=== PATIENT | female | born 1945 | race Caucasian/White ===

== ENCOUNTER 2018-04-16 11:31 | Outpatient (CLI) | payer MEDICARE | END 2018-04-16 11:32 | disposition home or self-care (01) | LOC: BICMAMMO 11:31 | PROVIDERS: ATTEND Family Medicine | DX: Z12.31 Encounter for screening mammogram for malignant neoplasm of breast (principal); Z80.3 Family history of malignant neoplasm of breast | CPT/HCPCS: 77063; 77067 ==

== ENCOUNTER 2018-08-21 12:46 | Outpatient (CLI) | payer MEDICARE ==
--- NOTE | 2018-08-21 15:13 | RAD ---
FOUR VIEW LUMBAR SPINE SERIES: CLINICAL HISTORY: Pain. FINDINGS: There is a mild anterior wedge compression fracture of L1. There is left convexity scoliosis of the lumbar spine epicenter at L2. There is multilevel moderate degenerative change. Vascular calcificat ion is present. There are calcifications overlying the pelvis not further characterized on this exam . IMPRESSION: 1. Mild L1 anterior wedge compression fracture. This is age-indeterminate on the basis of this exam . Correlate clinically. 2. Moderate degenerative change and left convexity scoliosis of the lumbar spine. POS: YESY
--- NOTE | 2018-08-21 15:19 | RAD ---
LEFT HIP 2 VIEWS: HISTORY: Left hip pain. FINDINGS: There are degenerative changes in the left hip manifested by osteophyte formation and joint space linda rowing. No acute fracture or dislocation or bone destruction is seen. IMPRESSION: Left hip osteoarthritis. POS: YESY
== END 2018-08-21 12:47 | disposition home or self-care (01) ==
LOC: BICRAD 12:46
PROVIDERS: ATTEND Family Medicine
DX: M54.5 Low back pain (principal); M25.552 Pain in left hip; M16.12 Unilateral primary osteoarthritis, left hip; S32.010A Wedge compression fracture of first lumbar vertebra, initial encounter for closed fracture; M47.896 Other spondylosis, lumbar region; M41.9 Scoliosis, unspecified
CPT/HCPCS: 72110

== ENCOUNTER 2018-09-24 12:04 | Outpatient (CLI) | payer MEDICARE ==
--- NOTE | 2018-09-24 14:34 | MRI ---
MRI LUMBAR SPINE WIHTOUT CONTRAST: HISTORY: Spinal stenosis. Low back pain. COMPARISON: Lumbar spine radiograph 08/21/2018. FINDINGS: The aortic contour is nonaneurysmal. No retroperitoneal adenopathy. There is moderate levoscoliosis . No hydronephrosis. T2 hyperintense focus posterior cortex interpolar right kidney measures approxima tely 6 mm, too small to characterize. No marrow infiltrative process. The conus medullaris terminates near the inferior end plate of L1. There is an old compression fracture at L1 with approximately 20% anterior height loss. No significa nt retropulsion. Levels are as follows: L1-2: There is severe degenerative disk space height loss. There is a circumferential disk bulge. This causes narrowing of the central CSF space with the spinal canal measuring 9 mm. There is mild l eft and moderate right-sided neural foraminal narrowing. Hypertrophic osteophyte formation to the fa cets is present. L2-3: There is a moderate circumferential disk bulge. Superimposed central annular fissure. Severe hypertrophic facet changes. There is mild left and moderate right-sided neural foraminal narrowing. The spinal canal measures approximately 6 mm. L3-4: Circumferential disk bulge. Moderate facet arthropathy. Disk bulge is worsened in the left s ubforaminal and extraforaminal zone. There is mild increased dorsal epidural fat. The spinal canal measures approximately 6 mm. Moderate left-sided and mild right-sided neural foraminal narrowing. L4-5: There is a low-grade broad-based posterior disk bulge, worse in the bilateral subforaminal zon es with osteophyte formation. Moderate facet arthropathy. Mild bilateral neural foraminal narrowing . L5-S1: Moderate posterior degenerative disk space height loss with a broad-based asymmetric central, left paracentral, and subforaminal and extraforaminal disk bulge. There is moderate left-sided and mild right-sided neural foraminal narrowing. IMPRESSION: 1. Moderate levoscoliosis of the lumbar spine with degenerative changes as described. 2. Old compression at L1 with approximately 20% anterior height loss. POS: [facility]
== END 2018-09-24 12:05 | disposition home or self-care (01) ==
LOC: SCSMRI 12:04
PROVIDERS: ATTEND Orthopaedic Surgery
DX: M48.061 Spinal stenosis, lumbar region without neurogenic claudication (principal); M41.9 Scoliosis, unspecified; M47.816 Spondylosis without myelopathy or radiculopathy, lumbar region
CPT/HCPCS: 72148

== ENCOUNTER 2020-06-22 13:45 | Outpatient (CLI) | payer MEDICARE ==
--- NOTE | 2020-06-22 16:19 | MMO ---
Bilateral MAMMO Bilat Screen [facility]. CLINICAL HISTORY: Patient is 74 years old and is seen for screening. The patient has the following family history of breast cancer: daughter, at age 46, malignant (generic). The patient has no personal history of cancer. VIEWS: The views performed were: bilateral craniocaudal with tomosynthesis and bilateral mediolateral oblique with tomosynthesis. FILMS COMPARED: The present examination [facility] and [facility]/13/2016, and at [facility] on 04/16/2018. This study has been interpreted with the assistance of computer-aided detection. MAMMOGRAM FINDINGS: The breasts are heterogeneously dense, which could obscure a lesion on mammography. There are stable calcifications seen in both breasts. There are no suspicious masses, suspicious calcifications, or new areas of architectural distortion. IMPRESSION: THERE IS NO MAMMOGRAPHIC EVIDENCE OF MALIGNANCY. A ROUTINE FOLLOW-UP MAMMOGRAM IN 1 YEAR IS RECOMMENDED. THE RESULTS OF THIS EXAM WERE SENT TO THE PATIENT. ACR BI-RADS Category 2 - Benign finding MAMMOGRAPHY NOTE: 1. A negative mammogram report should not delay a biopsy if a dominant of clinically suspicious mass is present. 2. Approximately 10% to 15% of breast cancers are not detected by mammography. 3. Adenosis and dense breasts may obscure an underlying neoplasm. Reported by: MONICA ROCHA MD Electonically Signed: [id number]
== END 2020-06-22 13:46 | disposition home or self-care (01) ==
LOC: BICMAMMO 13:45
PROVIDERS: ATTEND Family Medicine
DX: Z12.31 Encounter for screening mammogram for malignant neoplasm of breast (principal); Z80.3 Family history of malignant neoplasm of breast
CPT/HCPCS: 77063; 77067

== ENCOUNTER 2021-01-17 19:58 | Inpatient (IN) | payer MEDICARE ==
[2021-01-17 20:59] LABS: #Eosinphils 0.1 thou/uL (0.0-0.7); #Lymphocytes 1.8 thou/uL (1.20-3.40); #Monocytes 0.5 thou/uL (0.11-0.59); %Basophils 0.5 % (0.0-1.0); %Lymphocytes 24.3 % (21.0-51.0); %Monocytes 7.2 % (0.0-10.0); %Neutrophils 66.9 % (42.0-75.0); Hemoglobin 12.8 g/dL (12.0-16.0); Mean Corpuscular HGB CONC 33.3 g/dL (32.0-36.0); Mean Corpuscular Hemoglobin 31.8 pg (27.0-31.0); Mean Corpuscular Volume 95.3 fL (78.0-98.0); Mean Platelet Volume 7.3 fL (7.4-10.4); Platelet Count 237 thou/uL (130-400); Red Blood Cell (RBC) Count 4.03 mill/uL (4.20-5.40); White Blood Cell (WBC) Count 7.5 thou/uL (4.8-10.8)
[2021-01-17 21:19] LABS: ALT (SGPT) 11 U/L (8-55); AST (SGOT) 11 U/L (5-34); Albumin 4.2 g/dL (3.4-4.8); Alkaline Phosphatase 103 U/L (40-110); Anion Gap 17 mmol/L (10-20); BUN (Urea Nitrogen) 90 mg/dL (9.8-20.1); Bilirubin, Total 0.4 mg/dL (0.2-1.2); CK (CPK) 64 U/L (29-168); Calc. Creatinine Clearance 0 mL/min (70-130); Calcium 9.2 mg/dL (7.8-10.44); Carbon Dioxide 16 mmol/L (23-31); Chloride 110 mmol/L (98-107); Globulin 3.2 g/dL (2.4-3.5); Glucose 101 mg/dL (83-110); Magnesium 1.8 mg/dL (1.6-2.6); Potassium 3.8 mmol/L (3.5-5.1); Protein, Total 7.4 g/dL (5.8-8.1); Sodium 139 mmol/L (136-145)
[2021-01-17 23:04] LABS: Bilirubin Negative (Negative); Blood, Urine Negative (Negative); Clarity Clear (Clear); Glucose, Urine (Dipstick) Normal (Negative); Ketone, Urine Negative (Negative); Leukocyte Negative Leu/uL (Negative); Nitrite Negative (Negative); Protein, Urine (Dipstick) 10 mg/dL (Neg-Trace); Specific Gravity, Urine 1.013 (1.002-1.036); Urobilinogen Normal mg/dL (Less than 2)
[2021-01-17 23:20] VITALS: BMI 30.4
[2021-01-17] MEDS: Sodium Chloride 0.9% 1,000 ML IV SCH ×3 (23:32→23:54)
[2021-01-18] MEDS: Sodium Chloride 0.9% 1,000 ML IV SCH (05:51)
[2021-01-18 06:36] LABS: #Eosinphils 0.1 thou/uL (0.0-0.7); #Lymphocytes 1.7 thou/uL (1.20-3.40); #Monocytes 0.6 thou/uL (0.11-0.59); #Neutrophils 4.8 thou/uL (1.40-6.50); %Basophils 0.1 % (0.0-1.0); %Eosinophils 1.1 % (0.0-10.0); %Lymphocytes 23.1 % (21.0-51.0); %Monocytes 8.2 % (0.0-10.0); %Neutrophils 67.4 % (42.0-75.0); Hemoglobin 10.9 g/dL (12.0-16.0); Mean Corpuscular HGB CONC 33.3 g/dL (32.0-36.0); Mean Corpuscular Hemoglobin 31.7 pg (27.0-31.0); Mean Corpuscular Volume 95.2 fL (78.0-98.0); Mean Platelet Volume 7.5 fL (7.4-10.4); Platelet Count 193 thou/uL (130-400); RBC Distribution Width 12.9 % (11.5-14.5); Red Blood Cell (RBC) Count 3.44 mill/uL (4.20-5.40); White Blood Cell (WBC) Count 7.2 thou/uL (4.8-10.8)
[2021-01-18 06:56] LABS: Anion Gap 14 mmol/L (10-20); BUN (Urea Nitrogen) 78 mg/dL (9.8-20.1); Calc. Creatinine Clearance 22 mL/min (70-130); Calcium 8.7 mg/dL (7.8-10.44); Carbon Dioxide 15 mmol/L (23-31); Chloride 115 mmol/L (98-107); Glucose 98 mg/dL (83-110); Potassium 3.8 mmol/L (3.5-5.1); Sodium 140 mmol/L (136-145)
[2021-01-18] MEDS: Heparin 5,000 UNITS/ML VIAL SC SCH ×3 (08:54→20:36)
[2021-01-18] MEDS: Sodium Bicarbonate 150 MEQ in Dextrose 5% in Water 1,000 ML IV SCH ×2 (08:55→20:36)
[2021-01-18] MEDS ORDERED: Non-Formulary Item 1 EACH (Fluoxetine Hcl [Fluoxetine Hcl] 40 MG Capsule) PO SCH (09:00)
[2021-01-18] MEDS ORDERED: Non-Formulary Item 1 EACH (Levothyroxine Sodium [Levothyroxine] 125 MCG Capsule) PO SCH (09:00)
[2021-01-18] MEDS: FLUoxetine HCl 20 MG CAP PO SCH (09:04)
[2021-01-18] MEDS: Atorvastatin Calcium 40 MG TAB PO SCH (09:05)
[2021-01-18 14:45] LABS: Creatinine, Urine 69.04 mg/dL (47-110); Protein, Urine Random Quant Less than 10 mg/dL (1-14); Sodium, Urine 79 mmol/L (Not Available); Urea Nitrogen, Random Urine 744 mg/dl
[2021-01-19] MEDS: Levothyroxine Sodium 125 MCG TAB PO SCH (05:41)
[2021-01-19] MEDS: Sodium Bicarbonate 150 MEQ in Dextrose 5% in Water 1,000 ML IV SCH (05:42)
[2021-01-19 06:36] LABS: Hemoglobin 10.7 g/dL (12.0-16.0); Mean Corpuscular HGB CONC 34.7 g/dL (32.0-36.0); Mean Corpuscular Volume 92.3 fL (78.0-98.0); Mean Platelet Volume 7.3 fL (7.4-10.4); Platelet Count 188 thou/uL (130-400); RBC Distribution Width 12.7 % (11.5-14.5); Red Blood Cell (RBC) Count 3.33 mill/uL (4.20-5.40); White Blood Cell (WBC) Count 5.9 thou/uL (4.8-10.8)
[2021-01-19 07:06] LABS: Albumin 3.4 g/dL (3.4-4.8); Anion Gap 14 mmol/L (10-20); BUN (Urea Nitrogen) 45 mg/dL (9.8-20.1); BUN/Creatinine Ratio 33.58; Calc. Creatinine Clearance 51 mL/min (70-130); Calcium 8.1 mg/dL (7.8-10.44); Carbon Dioxide 23 mmol/L (23-31); Chloride 107 mmol/L (98-107); Glucose 110 mg/dL (83-110); Iron 109 ug/dL (50-170); Iron Binding Capacity, Total 224 mcg/dL (265-497); Magnesium 1.5 mg/dL (1.6-2.6); Sodium 141 mmol/L (136-145)
[2021-01-19] MEDS ORDERED: Magnesium Sulfate 4 GM in Sodium Chloride 0.9% 250 ML 250 ML IVPB SCH (08:30)
[2021-01-19] MEDS: Potassium Chloride 20 MEQ TAB PO SCH ×2 (09:47→21:26)
[2021-01-19] MEDS: Heparin 5,000 UNITS/ML VIAL SC SCH ×3 (09:48→21:26)
[2021-01-19] MEDS: FLUoxetine HCl 20 MG CAP PO SCH (09:48)
[2021-01-19] MEDS: Atorvastatin Calcium 40 MG TAB PO SCH (09:48)
[2021-01-19] MEDS ORDERED: Acetaminophen 325 MG TAB PO PRN (15:24)
[2021-01-20] MEDS: Levothyroxine Sodium 125 MCG TAB PO SCH (05:30)
[2021-01-20 06:35] LABS: Anion Gap 11 mmol/L (10-20); BUN (Urea Nitrogen) 31 mg/dL (9.8-20.1); Calc. Creatinine Clearance 59 mL/min (70-130); Calcium 8.6 mg/dL (7.8-10.44); Carbon Dioxide 30 mmol/L (23-31); Chloride 107 mmol/L (98-107); Glucose 97 mg/dL (83-110); Magnesium 2.2 mg/dL (1.6-2.6); Potassium 3.9 mmol/L (3.5-5.1); Sodium 144 mmol/L (136-145)
[2021-01-20] MEDS: Potassium Chloride 20 MEQ TAB PO SCH (08:53)
[2021-01-20] MEDS: Atorvastatin Calcium 40 MG TAB PO SCH (08:54)
[2021-01-20] MEDS: FLUoxetine HCl 20 MG CAP PO SCH (08:54)
[2021-01-20] MEDS: Heparin 5,000 UNITS/ML VIAL SC SCH (08:55)
[2021-01-20 12:28] VITALS: BP 105/71; TEMP 98.3
== END 2021-01-20 11:55 | disposition home or self-care (01) | DRG 683 ==
LOC: ERS 19:58 → T4-A 22:12
PROVIDERS: ADMIT Student in an Organized Health Care Education/Training Program; ATTEND Internal Medicine
DX: N17.9 Acute kidney failure, unspecified (principal); E87.2 Acidosis; A08.4 Viral intestinal infection, unspecified; I10 Essential (primary) hypertension; E78.5 Hyperlipidemia, unspecified; E78.00 Pure hypercholesterolemia, unspecified; E89.0 Postprocedural hypothyroidism; E86.9 Volume depletion, unspecified; I95.2 Hypotension due to drugs; T46.5X5A Adverse effect of other antihypertensive drugs, initial encounter; E87.6 Hypokalemia; E83.42 Hypomagnesemia; Z83.3 Family history of diabetes mellitus; Z79.899 Other long term (current) drug therapy; Z79.890 Hormone replacement therapy
CPT/HCPCS: 36415; 80048; 80053; 80069; 81003; 82150; 82550; 82570; 82728; 83540; 83550; 83690; 83735; 84156; 84300; 84540; 85025; 85027; 87635; 93005; J1644; J3475; J7050; J7070; U0003; U0005

== ENCOUNTER 2021-08-08 13:56 | Outpatient (CLI) | payer MEDICARE | END 2021-08-08 13:57 | disposition home or self-care (01) | LOC: BICMAMMO 13:56 | PROVIDERS: ATTEND Family Medicine | DX: Z12.31 Encounter for screening mammogram for malignant neoplasm of breast (principal); Z80.3 Family history of malignant neoplasm of breast | CPT/HCPCS: 77063; 77067 ==

== ENCOUNTER 2021-11-22 10:09 | Outpatient (CLI) | payer MEDICARE ==
[2021-11-22 11:22] LABS: #Eosinphils 0.1 10x3/uL (0.0-0.5); #Monocytes 0.5 10x3/uL (0.0-1.1); #Neutrophils 4.7 10x3/uL (1.5-8.4); %Basophils 0.3 % (0.0-2.0); %Eosinophils 1.8 % (0.0-6.0); %Lymphocytes 25.7 % (18.0-47.0); %Monocytes 7.1 % (0.0-10.0); %Neutrophils 64.7 % (40.0-75.0); Hemoglobin 12.5 g/dL (12.0-15.5); Mean Corpuscular HGB CONC 32.5 g/dL (32.0-36.0); Mean Corpuscular Hemoglobin 31.3 pg (27.0-33.0); Mean Corpuscular Volume 96.5 fl (81.6-98.3); Mean Platelet Volume 9.8 fl (7.4-10.4); Platelet Count 238 10x3/uL (150-450); RBC Distribution Width 13.7 % (11.5-14.5); Red Blood Cell (RBC) Count 3.99 10x6/uL (3.90-5.03); White Blood Cell (WBC) Count 7.2 10x3/uL (3.5-10.5)
[2021-11-22 11:42] LABS: Anion Gap 14 mmol/L (10-20); BUN (Urea Nitrogen) 25 mg/dL (9.8-20.1); Calc. Creatinine Clearance 0 mL/min (70-130); Calcium 9.6 mg/dL (7.8-10.44); Carbon Dioxide 31 mmol/L (23-31); Chloride 99 mmol/L (98-107); Glucose 108 mg/dL (83-110); Potassium 4.2 mmol/L (3.5-5.1); Prothrombin Time 10.8 sec (9.5-12.1); Sodium 140 mmol/L (136-145)
[2021-11-22 11:44] LABS: Bilirubin Neg (Negative); Blood, Urine Negative (Negative); Clarity Clear (Clear); Glucose, Urine (Dipstick) Normal (Negative); Ketone, Urine Negative (Negative); Leukocyte 25 (Negative); Nitrite Negative (Negative); Protein, Urine (Dipstick) 15 mg/dl (Neg-Trace); Specific Gravity, Urine 1.015 (1.002-1.036); Urobilinogen Normal mg/dL (Less than 2)
[2021-11-22 12:09] LABS: Bacteria/HPF None Seen HPF (None Seen); RBC/HPF 0-3 HPF (0-3); Squamous Epithelial 0-3 HPF (0-3); WBC/HPF 0-3 HPF (0-3)
[2021-11-22 20:45] LABS: SARS-CoV-2 PCR by NAA Not Detected (NotDetected)
== END 2021-11-22 10:10 | disposition home or self-care (01) ==
LOC: LABBT 10:09
PROVIDERS: ATTEND Orthopaedic Surgery
DX: Z01.818 Encounter for other preprocedural examination (principal); M16.12 Unilateral primary osteoarthritis, left hip; Z20.822 Contact with and (suspected) exposure to COVID-19
CPT/HCPCS: 80048; 85025; 85610; 87081; 93005; U0003; U0005; 81003; 81015; 93010

== ENCOUNTER 2021-11-27 05:44 | Inpatient (IN) | payer MEDICARE ==
[2021-11-27] MEDS ORDERED: ceFAZolin 2 GM/DEX 5% 100 ML BAG ONE (06:08)
[2021-11-27] MEDS ORDERED: Sodium Chloride 0.9% 100 ML ONE (06:08)
[2021-11-27] MEDS ORDERED: Tranexamic Acid 1,000 MG/10 ML VIAL ONE (06:08)
[2021-11-27] MEDS ORDERED: Vancomycin 1.5 GRAM/300 ML BAG 1.5 GM in Premix Bag 1 BAG IVPB SCH (06:15)
[2021-11-27] MEDS ORDERED: Bupivacaine PF 0.5% 30 ML VIAL ONE (06:22)
[2021-11-27] MEDS ORDERED: Midazolam HCl 2 mg/2 ml Vial ONE ×2 (06:46→07:44)
[2021-11-27] MEDS ORDERED: Fentanyl 100 MCG/2 ML VIAL ONE ×2 (06:46→09:16)
[2021-11-27] MEDS ORDERED: Lidocaine 1% (PF) 30 ML VIAL ONE (06:47)
[2021-11-27] MEDS ORDERED: Zolpidem Tartrate 5 MG TAB PO PRN (06:55)
[2021-11-27] MEDS ORDERED: diphenhydrAMINE 25 MG CAP PO PRN (06:55)
[2021-11-27] MEDS ORDERED: traMADol HCl 50 MG TAB PO PRN (06:55)
[2021-11-27] MEDS ORDERED: Ondansetron PF 4 MG/2 ML Vial IVP PRN (06:55)
[2021-11-27] MEDS ORDERED: Promethazine HCl 25 MG/ML VIAL IM PRN ×2 (06:55→09:02)
[2021-11-27] MEDS ORDERED: Bupivacaine HCl 0.5%/Epinephrine 1:200,000/PF 30 ml Vial ONE (07:24)
[2021-11-27] MEDS ORDERED: Ondansetron PF 4 MG/2 ML Vial ONE (07:24)
[2021-11-27] MEDS ORDERED: Dexamethasone 20 MG/5 ML VIAL ONE (07:24)
[2021-11-27] MEDS ORDERED: Phenylephrine 10 MG/ML VIAL ONE (07:24)
[2021-11-27] MEDS ORDERED: Scopolamine 1.5 mg/72 hour Patch ONE (08:04)
[2021-11-27] MEDS ORDERED: Ondansetron HCl/PF 4 MG/2 ML Vial IVP PRN (09:02)
[2021-11-27] MEDS ORDERED: Promethazine HCl 25 MG/ML VIAL IVPB PRN (09:02)
[2021-11-27] MEDS: Aspirin 81 mg Enteric Coated Tablet PO SCH ×2 (09:32→20:51)
[2021-11-27] MEDS: Allopurinol 100 MG TAB PO SCH (09:32)
[2021-11-27] MEDS: Sodium Chloride 0.9% 1,000 ML IV SCH ×2 (10:02→17:53)
[2021-11-27] MEDS: Cholecalciferol 1,000 UNITS (25 MCG) TAB PO SCH (11:32)
[2021-11-27] MEDS: FLUoxetine HCl 20 MG CAP PO SCH (11:33)
[2021-11-27] MEDS: Lisinopril/Hydrochlorothiazide 20/25 mg Tablet PO SCH (11:34)
[2021-11-27] MEDS: Fentanyl 100 MCG/2 ML VIAL SLOW IVP PRN ×2 (12:02→21:05)
[2021-11-27] MEDS ORDERED: Ketorolac Tromethamine 30 MG/ML VIAL IM SCH (14:00)
[2021-11-27] MEDS: traMADol HCl 50 MG TAB PO PRN (15:43)
[2021-11-27] MEDS: Atorvastatin Calcium 40 MG TAB PO SCH (20:51)
[2021-11-28 02:13] VITALS: BMI 31.9
[2021-11-28] MEDS: traMADol HCl 50 MG TAB PO PRN (05:37)
[2021-11-28] MEDS: Levothyroxine Sodium 125 MCG TAB PO SCH (05:37)
[2021-11-28] MEDS: Sodium Chloride 0.9% 1,000 ML IV SCH ×3 (06:29→20:39)
[2021-11-28 06:44] LABS: Hemoglobin 10.6 g/dL (12.0-16.0); Mean Corpuscular HGB CONC 33.9 g/dL (32.0-36.0); Mean Corpuscular Hemoglobin 33.4 pg (27.0-31.0); Mean Corpuscular Volume 98.3 fL (78.0-98.0); Mean Platelet Volume 7.1 fL (7.4-10.4); Platelet Count 192 thou/uL (130-400); RBC Distribution Width 12.7 % (11.5-14.5); Red Blood Cell (RBC) Count 3.17 mill/uL (4.20-5.40); White Blood Cell (WBC) Count 10.8 thou/uL (4.8-10.8)
[2021-11-28] MEDS: Fentanyl 100 MCG/2 ML VIAL SLOW IVP PRN (09:00)
[2021-11-28] MEDS: Ferrous Gluconate 324 MG TAB PO SCH ×2 (09:13→20:34)
[2021-11-28] MEDS: FLUoxetine HCl 20 MG CAP PO SCH (09:14)
[2021-11-28] MEDS: Senokot S 8.6-50 MG TAB PO SCH ×2 (09:14→20:34)
[2021-11-28] MEDS: Lisinopril/Hydrochlorothiazide 20/25 mg Tablet PO SCH (09:14)
[2021-11-28] MEDS: Aspirin 81 mg Enteric Coated Tablet PO SCH ×2 (09:14→20:33)
[2021-11-28] MEDS: Multivitamin W/ Minerals 1 TAB PO SCH (09:14)
[2021-11-28] MEDS: Cholecalciferol 1,000 UNITS (25 MCG) TAB PO SCH (09:15)
[2021-11-28] MEDS: Allopurinol 100 MG TAB PO SCH (09:15)
[2021-11-28] MEDS: Atorvastatin Calcium 40 MG TAB PO SCH (20:33)
[2021-11-28] MEDS: Acetaminophen 325 MG TAB PO PRN (22:43)
[2021-11-29] MEDS: Acetaminophen 325 MG TAB PO PRN (05:34)
[2021-11-29] MEDS: Levothyroxine Sodium 125 MCG TAB PO SCH (05:34)
[2021-11-29] MEDS: Cholecalciferol 1,000 UNITS (25 MCG) TAB PO SCH (08:34)
[2021-11-29] MEDS: Lisinopril/Hydrochlorothiazide 20/25 mg Tablet PO SCH (08:34)
[2021-11-29] MEDS: Ferrous Gluconate 324 MG TAB PO SCH (08:35)
[2021-11-29] MEDS: Senokot S 8.6-50 MG TAB PO SCH (08:35)
[2021-11-29] MEDS: Allopurinol 100 MG TAB PO SCH (08:35)
[2021-11-29] MEDS: Multivitamin W/ Minerals 1 TAB PO SCH (08:35)
[2021-11-29] MEDS: Aspirin 81 mg Enteric Coated Tablet PO SCH (08:35)
[2021-11-29] MEDS: FLUoxetine HCl 20 MG CAP PO SCH (08:35)
[2021-11-29 11:25] VITALS: TEMP 98.6
[2021-11-29 12:34] VITALS: BP 88/56
[2021-12-01] MEDS ORDERED: FLU VACC QS2021-22(65YR UP)/PF 240 MCG/0.7 ML SYRINGE IM ONE (09:00)
== END 2021-11-29 15:47 | disposition home or self-care (01) | DRG 470 ==
LOC: SDC 05:44 → SURG A 06:56
PROVIDERS: ADMIT Orthopaedic Surgery; ATTEND Orthopaedic Surgery
PROC: 0SRB039 Replacement of Left Hip Joint with Ceramic Synthetic Substitute, Cemented, Open Approach (ICD-10-PCS; principal; 2021-11-27)
DX: M16.12 Unilateral primary osteoarthritis, left hip (principal); I10 Essential (primary) hypertension; E78.5 Hyperlipidemia, unspecified; E89.0 Postprocedural hypothyroidism; M10.9 Gout, unspecified; F41.9 Anxiety disorder, unspecified; H40.9 Unspecified glaucoma; Z79.899 Other long term (current) drug therapy; Z79.890 Hormone replacement therapy
CPT/HCPCS: 36415; 85027; C1776; J1100; J2001; J2250; J2370; J2405; J3010; J3370; J3490; J7050; S0020

== ENCOUNTER 2022-05-24 13:08 | Outpatient (CLI) | payer MEDICARE | END 2022-05-24 13:09 | disposition home or self-care (01) | LOC: ULT 13:08 | PROVIDERS: ATTEND Family Medicine | DX: I26.99 Other pulmonary embolism without acute cor pulmonale (principal); Z96.649 Presence of unspecified artificial hip joint | CPT/HCPCS: 93970 ==

== ENCOUNTER 2022-11-21 14:12 | Outpatient (CLI) | payer MEDICARE | END 2022-11-21 14:13 | disposition home or self-care (01) | LOC: BICMAMMO 14:12 | PROVIDERS: ATTEND Family Medicine | DX: Z12.31 Encounter for screening mammogram for malignant neoplasm of breast (principal); Z80.3 Family history of malignant neoplasm of breast | CPT/HCPCS: 77063; 77067 ==

== ENCOUNTER 2024-08-13 09:07 | Outpatient (CLI) | payer MEDICARE | END 2024-08-13 09:08 | disposition home or self-care (01) | LOC: BICULT 09:07 | PROVIDERS: ATTEND Family Medicine | DX: R10.11 Right upper quadrant pain (principal); R93.2 Abnormal findings on diagnostic imaging of liver and biliary tract | CPT/HCPCS: 76705 ==

== ENCOUNTER 2024-09-20 09:46 | Outpatient (CLI) | payer MEDICARE ==
[2024-09-20 12:06] LABS: #Basophils Less than 0.03 10x3/uL (0.0-0.2); %Basophils 0.3 % (0.0-1.0); %Eosinophils 2.6 % (0.0-10.0); %Lymphocytes 28.7 % (21.0-51.0); %Neutrophils 60.1 % (42.0-75.0); Hemoglobin 12.6 g/dL (12.0-16.0); Mean Corpuscular HGB CONC 32.3 g/dL (32.0-36.0); Mean Corpuscular Hemoglobin 29.9 pg (27.0-31.0); Mean Corpuscular Volume 92.6 fL (78.0-98.0); Mean Platelet Volume 10.3 fL (7.4-10.4); Platelet Count 211 10x3/uL (130-400); Red Blood Cell (RBC) Count 4.21 mill/uL (4.20-5.40)
[2024-09-20 12:28] LABS: ALT (SGPT) 16 U/L (8-55); AST (SGOT) 20 U/L (5-34); Albumin 3.9 g/dL (3.4-4.8); Alkaline Phosphatase 106 U/L (40-110); Anion Gap 14 mmol/L (10-20); BUN (Urea Nitrogen) 26 mg/dL (9.8-20.1); Bilirubin, Direct 0.1 mg/dL (0.1-0.3); Bilirubin, Total 0.4 mg/dL (0.2-1.2); Calc. Creatinine Clearance 0 mL/min (70-130); Calcium 9.2 mg/dL (7.8-10.44); Carbon Dioxide 25 mmol/L (23-31); Chloride 105 mmol/L (98-107); Estimated GFR 37; Globulin 3.5 g/dL (2.4-3.5); Glucose 98 mg/dL (83-110); Potassium 3.9 mmol/L (3.5-5.1); Protein, Total 7.4 g/dL (5.8-8.1); Sodium 140 mmol/L (136-145)
== END 2024-09-20 09:47 | disposition home or self-care (01) ==
LOC: LABBT 09:46
PROVIDERS: ATTEND Surgery
DX: Z01.818 Encounter for other preprocedural examination (principal); K81.1 Chronic cholecystitis; Q44.1 Other congenital malformations of gallbladder
CPT/HCPCS: 80053; 80076; 85025

== ENCOUNTER 2024-09-24 06:33 | Day surgery (SDC) | payer MEDICARE ==
[2024-09-24] MEDS ORDERED: Lidocaine 4% Topical Sol 50 ML BOT ONE (06:38)
[2024-09-24] MEDS ORDERED: Famotidine/PF 20 mg/2ml Vial ONE (07:21)
[2024-09-24] MEDS ORDERED: EPINEPHrine 1 MG/ML VIAL ONE (08:16)
[2024-09-24] MEDS ORDERED: Bupivacaine 0.25% HCL 30 ML VIAL ONE (08:16)
[2024-09-24] MEDS ORDERED: PROPOFOL 20 ML ONE (08:18)
[2024-09-24] MEDS ORDERED: fentaNYL PF 100 MCG/2 ML SYRINGE ONE (08:18)
[2024-09-24] MEDS ORDERED: SUGAMMADEX SODIUM 200 MG/2 ML VIAL ONE (08:18)
[2024-09-24] MEDS ORDERED: Ondansetron PF 4 MG/2 ML Vial ONE ×2 (08:18→09:46)
[2024-09-24] MEDS ORDERED: Lidocaine 1% PF 5 ML VIAL ONE (08:18)
[2024-09-24] MEDS ORDERED: Rocuronium Bromide 10 MG/ML (10ML VIAL) ONE (08:18)
[2024-09-24] MEDS ORDERED: CEFAZOLIN 2 GM VIAL ONE (08:29)
[2024-09-24] MEDS ORDERED: Indocyanine Green 25 MG/10 ML VIAL ONE (08:40)
[2024-09-24] MEDS ORDERED: Dexamethasone 4 mg/ml Vial ONE (08:52)
[2024-09-24] MEDS ORDERED: ePHEDrine Sulfate 50 MG/10 ML VIAL ONE (08:57)
[2024-09-24] MEDS ORDERED: fentaNYL 50 mcg/mL 1 mL Vial ONE ×2 (09:17→09:46)
[2024-09-24] MEDS ORDERED: HYDROmorphone 0.5 MG/0.5 ML SYRINGE ONE (09:58)
[2024-09-24] MEDS ORDERED: Promethazine HCl 25 MG/ML VIAL ONE (09:58)
== END 2024-09-24 13:45 | disposition home or self-care (01) ==
LOC: SDC 06:33
PROVIDERS: ATTEND Surgery
PROC: 0FT44ZZ Resection of Gallbladder, Percutaneous Endoscopic Approach (ICD-10-PCS; principal; 2024-09-24)
DX: K81.1 Chronic cholecystitis (principal); Q44.1 Other congenital malformations of gallbladder; I26.99 Other pulmonary embolism without acute cor pulmonale; I12.9 Hypertensive chronic kidney disease with stage 1 through stage 4 chronic kidney disease, or unspecified chronic kidney disease; N18.9 Chronic kidney disease, unspecified; K82.2 Perforation of gallbladder; E78.5 Hyperlipidemia, unspecified; E03.9 Hypothyroidism, unspecified; F41.9 Anxiety disorder, unspecified; F32.A Depression, unspecified; M10.9 Gout, unspecified; M19.90 Unspecified osteoarthritis, unspecified site; G62.9 Polyneuropathy, unspecified; Z90.89 Acquired absence of other organs; Z87.59 Personal history of other complications of pregnancy, childbirth and the puerperium; Z96.642 Presence of left artificial hip joint; Z86.0100 Personal history of colon polyps, unspecified; Z78.0 Asymptomatic menopausal state; Z79.890 Hormone replacement therapy; Z79.899 Other long term (current) drug therapy
CPT/HCPCS: 47562; C1889; J0171; J0665; J1100; J2405; J2550; J2704; J3010; J3490; S2900; 88304

== ENCOUNTER 2025-06-14 12:42 | Outpatient (CLI) | payer MEDICARE | END 2025-06-14 12:43 | disposition home or self-care (01) | LOC: BICMAMMO 12:42 | PROVIDERS: ATTEND Family Medicine | DX: Z12.31 Encounter for screening mammogram for malignant neoplasm of breast (principal); Z80.3 Family history of malignant neoplasm of breast; N64.89 Other specified disorders of breast | CPT/HCPCS: 77063; 77067 ==

== ENCOUNTER 2025-06-24 14:37 | Inpatient (IN) | payer MEDICARE ==
[2025-06-24] MEDS ORDERED: Ondansetron PF 4 MG/2 ML Vial ONE ×2 (15:16→16:53)
[2025-06-24] MEDS ORDERED: Ketorolac Tromethamine 30 MG (1 mL) VIAL ONE ×2 (17:41→17:43)
[2025-06-24 18:23] LABS: #Basophils Less than 0.03 10x3/uL (0.0-0.2); #Eosinophils Less than 0.03 10x3/uL (0.0-0.7); #Monocytes 0.43 10x3/uL (0.11-0.59); #Neutrophils 10.34 10x3/uL (1.40-6.50); %Basophils 0.2 % (0.0-1.0); %Eosinophils 0.1 % (0.0-10.0); %Lymphocytes 6.0 % (21.0-51.0); %Monocytes 3.7 % (0.0-10.0); %Neutrophils 89.6 % (42.0-75.0); Hematocrit 35.2 % (36.0-47.0); Hemoglobin 11.3 g/dL (12.0-16.0); Mean Corpuscular Hemoglobin 30.0 pg (27.0-31.0); Mean Corpuscular Volume 93.4 fL (78.0-98.0); Platelet Count 184 10x3/uL (130-400); Red Blood Cell (RBC) Count 3.77 mill/uL (4.20-5.40); White Blood Cell (WBC) Count 11.54 10x3/uL (4.8-10.8)
[2025-06-24 18:38] LABS: ALT (SGPT) 18 U/L (Less than 34); AST (SGOT) 24 U/L (11-34); Albumin 3.5 g/dL (3.1-4.5); Alkaline Phosphatase 91 U/L (40-110); Anion Gap 12 mmol/L (10-20); BUN (Urea Nitrogen) 21 mg/dL (9.8-20.1); Bilirubin, Total 0.3 mg/dL (0.3-1.2); Calc. Creatinine Clearance 0 mL/min (70-130); Calcium 8.3 mg/dL (7.8-10.44); Carbon Dioxide 25 mmol/L (23-31); Chloride 105 mmol/L (98-107); Globulin 3.0 g/dL (2.4-3.5); Glucose 141 mg/dL (83-110); Potassium 3.8 mmol/L (3.5-5.1); Sodium 138 mmol/L (136-145)
[2025-06-24 18:39] LABS: Troponin I 0.010 ng/mL (< 0.028)
[2025-06-24 18:54] LABS: Platelet Adequacy Comment Platelets Normal
[2025-06-24] MEDS ORDERED: hydrALAZINE 20 MG/ML VIAL SLOW IVP PRN (19:45)
[2025-06-24] MEDS ORDERED: Glucagon 1 MG/ML KIT IM PRN (19:45)
[2025-06-24] MEDS ORDERED: Dextrose 50% Abboject 50 ML SYRINGE SLOW IVP PRN (19:45)
[2025-06-24 21:35] VITALS: BMI 29.0
[2025-06-25] MEDS: Methocarbamol 500 MG TAB PO PRN (04:12)
[2025-06-25 05:16] LABS: Anion Gap 20 mmol/L (10-20); BUN (Urea Nitrogen) 24 mg/dL (9.8-20.1); Calc. Creatinine Clearance 50 mL/min (70-130); Calcium 8.1 mg/dL (7.8-10.44); Carbon Dioxide 22 mmol/L (23-31); Chloride 104 mmol/L (98-107); Glucose 118 mg/dL (83-110); Potassium 3.7 mmol/L (3.5-5.1); Sodium 142 mmol/L (136-145)
[2025-06-25 06:41] LABS: #Basophils Less than 0.03 10x3/uL (0.0-0.2); #Eosinophils 0.11 10x3/uL (0.0-0.7); #Monocytes 0.68 10x3/uL (0.11-0.59); #Neutrophils 6.88 10x3/uL (1.40-6.50); %Basophils 0.1 % (0.0-1.0); %Eosinophils 1.2 % (0.0-10.0); %Lymphocytes 15.4 % (21.0-51.0); %Monocytes 7.5 % (0.0-10.0); %Neutrophils 75.5 % (42.0-75.0); Hematocrit 32.0 % (36.0-47.0); Hemoglobin 10.1 g/dL (12.0-16.0); Mean Corpuscular Hemoglobin 30.1 pg (27.0-31.0); Mean Corpuscular Volume 95.2 fL (78.0-98.0); Platelet Count 157 10x3/uL (130-400); Red Blood Cell (RBC) Count 3.36 mill/uL (4.20-5.40); White Blood Cell (WBC) Count 9.11 10x3/uL (4.8-10.8)
[2025-06-25] MEDS ORDERED: PROPOFOL 40 ML ONE (08:02)
[2025-06-25] MEDS ORDERED: Lidocaine 1% PF 5 ML VIAL ONE (08:20)
[2025-06-25] MEDS ORDERED: Rocuronium Bromide 10 MG/ML (10ML VIAL) ONE (08:20)
[2025-06-25] MEDS ORDERED: PHENYLEPHRINE-NS 100 MCG/ML 10 ML SYRINGE ONE ×2 (08:24→10:04)
[2025-06-25] MEDS ORDERED: SUGAMMADEX SODIUM 200 MG/2 ML VIAL ONE (11:20)
[2025-06-25] MEDS ORDERED: fentaNYL PF 100 MCG/2 ML SYRINGE ONE (12:26)
[2025-06-25] MEDS: Ondansetron PF 4 MG/2 ML Vial IVP PRN (13:29)
[2025-06-26 05:13] LABS: #Basophils Less than 0.03 10x3/uL (0.0-0.2); #Eosinophils Less than 0.03 10x3/uL (0.0-0.7); #Monocytes 0.87 10x3/uL (0.11-0.59); #Neutrophils 7.96 10x3/uL (1.40-6.50); %Basophils 0.1 % (0.0-1.0); %Eosinophils 0.0 % (0.0-10.0); %Lymphocytes 7.8 % (21.0-51.0); %Monocytes 9.0 % (0.0-10.0); %Neutrophils 82.7 % (42.0-75.0); Hematocrit 21.7 % (36.0-47.0); Hemoglobin 7.0 g/dL (12.0-16.0); Mean Corpuscular Hemoglobin 30.1 pg (27.0-31.0); Mean Corpuscular Volume 94.1 fL (78.0-98.0); Platelet Count 153 10x3/uL (130-400); Red Blood Cell (RBC) Count 2.36 mill/uL (4.20-5.40); White Blood Cell (WBC) Count 9.63 10x3/uL (4.8-10.8)
[2025-06-26 05:28] LABS: Anion Gap 11 mmol/L (10-20); BUN (Urea Nitrogen) 15 mg/dL (9.8-20.1); Calc. Creatinine Clearance 73 mL/min (70-130); Calcium 8.0 mg/dL (7.8-10.44); Carbon Dioxide 25 mmol/L (23-31); Chloride 108 mmol/L (98-107); Glucose 136 mg/dL (83-110); Potassium 3.6 mmol/L (3.5-5.1); Sodium 140 mmol/L (136-145)
[2025-06-26] MEDS: Levothyroxine 150 MCG TAB PO SCH (05:32)
[2025-06-26] MEDS: Pantoprazole 40 MG DR.TAB PO SCH (12:05)
[2025-06-26] MEDS: HYDROcodone/Acetaminophen 5/325 mg Tablet PO PRN (15:58)
[2025-06-26 18:41] LABS: Hematocrit 23.4 % (36.0-47.0); Hemoglobin 7.5 g/dL (12.0-16.0); Platelet Count 125 10x3/uL (130-400)
[2025-06-26] MEDS: Acetaminophen 325 MG TAB PO PRN (20:57)
[2025-06-26] MEDS: Enoxaparin 40 MG (0.4 mL) SYRINGE SC SCH (21:03)
[2025-06-27 07:15] LABS: #Basophils Less than 0.03 10x3/uL (0.0-0.2); #Eosinophils 0.11 10x3/uL (0.0-0.7); #Monocytes 0.75 10x3/uL (0.11-0.59); #Neutrophils 6.71 10x3/uL (1.40-6.50); %Basophils 0.1 % (0.0-1.0); %Eosinophils 1.2 % (0.0-10.0); %Lymphocytes 13.8 % (21.0-51.0); %Monocytes 8.5 % (0.0-10.0); %Neutrophils 75.9 % (42.0-75.0); Hematocrit 24.6 % (36.0-47.0); Hemoglobin 7.7 g/dL (12.0-16.0); Mean Corpuscular Hemoglobin 29.4 pg (27.0-31.0); Mean Corpuscular Volume 93.9 fL (78.0-98.0); Platelet Count 134 10x3/uL (130-400); Red Blood Cell (RBC) Count 2.62 mill/uL (4.20-5.40); White Blood Cell (WBC) Count 8.84 10x3/uL (4.8-10.8)
[2025-06-27 07:31] LABS: Anion Gap 12 mmol/L (10-20); BUN (Urea Nitrogen) 12 mg/dL (9.8-20.1); Calc. Creatinine Clearance 78 mL/min (70-130); Calcium 8.4 mg/dL (7.8-10.44); Carbon Dioxide 26 mmol/L (23-31); Chloride 107 mmol/L (98-107); Glucose 99 mg/dL (83-110); Potassium 3.2 mmol/L (3.5-5.1); Sodium 142 mmol/L (136-145)
[2025-06-27] MEDS: Pantoprazole 40 MG DR.TAB PO SCH (08:54)
[2025-06-27] MEDS: Senokot S 8.6-50 MG TAB PO SCH (08:54)
[2025-06-27] MEDS: Apixaban 5 MG TAB PO SCH (08:54)
[2025-06-27] MEDS ORDERED: Electrolyte Replacement Protocol 1 EACH FS PRN (09:15)
[2025-06-27 16:06] LABS: Potassium 3.4 mmol/L (3.5-5.1)
[2025-06-28 07:35] LABS: #Basophils Less than 0.03 10x3/uL (0.0-0.2); #Eosinophils 0.17 10x3/uL (0.0-0.7); #Monocytes 0.57 10x3/uL (0.11-0.59); #Neutrophils 5.22 10x3/uL (1.40-6.50); %Basophils 0.3 % (0.0-1.0); %Eosinophils 2.3 % (0.0-10.0); %Lymphocytes 17.5 % (21.0-51.0); %Monocytes 7.8 % (0.0-10.0); %Neutrophils 71.8 % (42.0-75.0); Hematocrit 23.4 % (36.0-47.0); Hemoglobin 7.2 g/dL (12.0-16.0); Mean Corpuscular Hemoglobin 29.0 pg (27.0-31.0); Mean Corpuscular Volume 94.4 fL (78.0-98.0); Platelet Count 138 10x3/uL (130-400); Red Blood Cell (RBC) Count 2.48 mill/uL (4.20-5.40); White Blood Cell (WBC) Count 7.27 10x3/uL (4.8-10.8)
[2025-06-28 19:47] LABS: Hematocrit 23.5 % (36.0-47.0); Hemoglobin 7.3 g/dL (12.0-16.0); Platelet Count 158 10x3/uL (130-400)
[2025-06-29 06:32] LABS: #Basophils Less than 0.03 10x3/uL (0.0-0.2); #Eosinophils 0.21 10x3/uL (0.0-0.7); #Monocytes 0.51 10x3/uL (0.11-0.59); #Neutrophils 4.92 10x3/uL (1.40-6.50); %Basophils 0.1 % (0.0-1.0); %Eosinophils 3.0 % (0.0-10.0); %Lymphocytes 19.1 % (21.0-51.0); %Monocytes 7.3 % (0.0-10.0); %Neutrophils 70.1 % (42.0-75.0); Hematocrit 23.3 % (36.0-47.0); Hemoglobin 7.2 g/dL (12.0-16.0); Mean Corpuscular Hemoglobin 29.1 pg (27.0-31.0); Mean Corpuscular Volume 94.3 fL (78.0-98.0); Platelet Count 163 10x3/uL (130-400); Red Blood Cell (RBC) Count 2.47 mill/uL (4.20-5.40); White Blood Cell (WBC) Count 7.02 10x3/uL (4.8-10.8)
[2025-06-29 06:51] LABS: Anion Gap 11 mmol/L (10-20); BUN (Urea Nitrogen) 13 mg/dL (9.8-20.1); Calc. Creatinine Clearance 73 mL/min (70-130); Calcium 7.9 mg/dL (7.8-10.44); Carbon Dioxide 30 mmol/L (23-31); Chloride 103 mmol/L (98-107); Glucose 105 mg/dL (83-110); Potassium 3.5 mmol/L (3.5-5.1); Sodium 140 mmol/L (136-145)
[2025-06-29 11:34] VITALS: BP 130/84; TEMP 97.9
== END 2025-06-29 12:45 | disposition swing bed (61) | DRG 481 ==
LOC: ERS 14:37 → SURG A 19:45
PROVIDERS: ADMIT Surgery; ATTEND Surgery
PROC: 0QSB04Z Reposition Right Lower Femur with Internal Fixation Device, Open Approach (ICD-10-PCS; principal; 2025-06-25)
PROC: 0PSJ04Z Reposition Left Radius with Internal Fixation Device, Open Approach (ICD-10-PCS; 2025-06-25)
PROC: 30233N1 Transfusion of Nonautologous Red Blood Cells into Peripheral Vein, Percutaneous Approach (ICD-10-PCS; 2025-06-26)
PROC: 30233L1 Transfusion of Nonautologous Fresh Plasma into Peripheral Vein, Percutaneous Approach (ICD-10-PCS; 2025-06-26)
PROC: 30233K1 Transfusion of Nonautologous Frozen Plasma into Peripheral Vein, Percutaneous Approach (ICD-10-PCS; 2025-06-26)
DX: S72.401A Unspecified fracture of lower end of right femur, initial encounter for closed fracture (principal); D62 Acute posthemorrhagic anemia; S52.502A Unspecified fracture of the lower end of left radius, initial encounter for closed fracture; N17.9 Acute kidney failure, unspecified; I25.10 Atherosclerotic heart disease of native coronary artery without angina pectoris; I12.9 Hypertensive chronic kidney disease with stage 1 through stage 4 chronic kidney disease, or unspecified chronic kidney disease; W19.XXXA Unspecified fall, initial encounter; E11.22 Type 2 diabetes mellitus with diabetic chronic kidney disease; N18.9 Chronic kidney disease, unspecified; Z86.73 Personal history of transient ischemic attack (TIA), and cerebral infarction without residual deficits; Z98.890 Other specified postprocedural states; Z98.891 History of uterine scar from previous surgery; Z86.711 Personal history of pulmonary embolism
CPT/HCPCS: 25600; 27502; 36415; 36430; 70450; 72170; 80048; 80053; 84484; 85025; 86850; 86900; 86901; 93005; 96374; 96375; 96376; C1713; G0390; J1100; J1650; J1885; J2270; J2405; J2704; J3010; J7030; P9016; P9045; P9059